=== PATIENT | female | born 1950 | race Caucasian/White ===

== ENCOUNTER → 2017-05-21 | Outpatient (CLI) | payer MEDICARE, OTHER ==
--- NOTE | ~2017-05-21 | MY29 ---
[facility] A Service of [facility] RADIOLOGY TEXT RESULTS PATIENT: QUINTEN GORMAN LOCATION: [facility] : 50 UNIT #: [id number] AGE: [address]: NATASHA LAZCANO SEX: F ORDER DR: [id number] [facility] [address] [place], [place] [address] [id number] O MR#: [id number] Acc #: [id number] NAME: QUINTEN GORMAN : 1950 SEX: F STUDY DATE/TIME: 05/21/2017 10:44 UNIT: [facility] ROOM: STUDY DESCRIPTION: MY LIBBY SCREENING W/ CAD BILAT Attending Physician: Natasha Lazcano M.D. Referring Physician: Natasha Lazcano M.D. Ordering Physician: Physician Non-Staff Primary Care Physician: Natasha Lazcano M.D. MEDICAL IMAGING REPORT This report is preliminary unless electronic signature is present EXAM Digital screening mammogram 05/21/2017 HISTORY 67-year-old woman, no risk elevation. Annual screen. COMPARISON STUDIES Comparison mammograms date to 01/01/2007 with most recent 05/19/2016. FINDINGS Digital imaging of each breast was completed utilizing screening protocol. Review includes FDA-approved CAD device. Breast parenchyma is heterogeneous with small nodular parenchymal pattern noted bilaterally. This projects predominantly anterior third location in each breast. I see no suspicious mass characteristics. There are no interval occurring microcalcifications and no suspicious architectural deformity. IMPRESSION Benign mammogram. Annual screening recommended. BIRADS II Patients over the age of 40 are entered into a reminder system with target due date for the next mammogram. A result letter will also be sent to the patient. BIRADS: 2 - Benign finding Dictated by... Osvaldo Walker M.D. THIS IS AN ELECTRONICALLY VERIFIED REPORT Osvaldo Walker M.D. at 05/22/2017 8:11 AM YOLETTE/penny [facility] A Service of [facility] RADIOLOGY TEXT RESULTS PATIENT: QUINT[facility] GORMAN [id number] 50 UNIT #: [id number] AGE: [address]: NATASHA LAZCANO SEX: F ORDER DR: TD: 05/21/2017 16:55 JOB #: [id number] MEDICAL IMAGING REPORT Page 1 of 1 COPY
== END | disposition home or self-care (01) ==
LOC: CWCC 10:15
DX: Z12.31 Encounter for screening mammogram for malignant neoplasm of breast (principal)
CPT/HCPCS: G0202

== ENCOUNTER 2017-06-20 21:56 | Emergency (ER) | payer MEDICARE, OTHER ==
[~2017-06-20] VITALS: Ht 157.5 cm; Wt 60.8 kg
--- NOTE | ~2017-06-20 | CR72 ---
[facility] A Service of [facility] RADIOLOGY TEXT RESULTS PATIENT: QUINTEN GORMAN LOCATION: [facility] : 50 UNIT #: [id number] AGE: [address]: Carlos Mesa MD SEX: F ORDER DR: [id number] [facility] [address] [place], [place] [address] [id number] E MR#: [id number] Acc #: [id number] NAME: QUINTEN GORMAN. : 1950 SEX: F STUDY DATE/TIME: 06/20/2017 22:53 UNIT: [facility] ROOM: STUDY DESCRIPTION: CR Chest Single View Portable Attending Physician: Carlos Mesa M.D. Ordering Physician: Carlos Mesa M.D. Primary Care Physician: Natasha Carr M.D. MEDICAL IMAGING REPORT This report is preliminary unless electronic signature is present EXAM Chest x-ray, 06/20/2017 HISTORY 67-year-old female in the ED complaining of headache, neck pain and left shoulder pain after a fall today prior to arrival. TECHNIQUE AP portable chest x-ray. Findings the examination shows a displaced midshaft fracture of the left clavicle. No rib fracture is visible. Shallow lung expansion with mild bibasilar pulmonary atelectasis. No visible pneumothorax or pleural effusion. Mild cardiomegaly. IMPRESSION Left clavicle fracture. Dictated by... Cyril Manley M.D. THIS IS AN ELECTRONICALLY VERIFIED REPORT Cyril Manley M.D. at 06/21/2017 6:05 AM ANIRUDH/grace TD: 06/21/2017 05:26 JOB #: [id number] MEDICAL IMAGING REPORT Page 1 of 1 COPY
--- NOTE | ~2017-06-20 | CT52 ---
[facility] A Service of [facility] RADIOLOGY TEXT RESULTS PATIENT: QUINTEN GORMAN LOCATION: [facility] : 50 UNIT #: [id number] AGE: [address]: Carlos Mesa MD SEX: F ORDER DR: [id number] [facility] [place], [place] [address] [id number] E MR#: [id number] Acc #: [id number] NAME: QUINTEN GORMAN. : 1950 SEX: F STUDY DATE/TIME: 06/20/2017 22:42 UNIT: [facility] ROOM: STUDY DESCRIPTION: CT Cervical Spine Wo Cont Attending Physician: Carlos Mesa M.D. Ordering Physician: Carlos Mesa M.D. Primary Care Physician: Natasha Carr M.D. MEDICAL IMAGING REPORT This report is preliminary unless electronic signature is present EXAM CT cervical spine, 06/20/2017 HISTORY 67-year-old female in the ED complaining of headache, neck pain and left shoulder pain after a fall prior to arrival today. TECHNIQUE Thin-section axial CT images were obtained from the skull base through the mid portion of T2. Sagittal and coronal images were reconstructed. This CT exam was performed with one or more of the following radiation dose reduction techniques: automatic exposure control, adjustment of mA and/or kV according to patient size, and iterative reconstruction. FINDINGS No fracture or other acute osseous abnormality is demonstrated. Moderate degenerative disc space changes at C5-6. Mild to moderate bilateral degenerative facet arthropathy throughout the cervical spine, greatest on the left at C3-4 and C4-5. Grade 1 anterolisthesis at C4-5. Cervical vertebral alignment is otherwise within normal limits. IMPRESSION 1. No acute osseous abnormality. 2. Degenerative disc disease at C5-6. 3. Degenerative facet arthropathy, greatest on the left at C3-4 and C4-5. Grade 1 anterolisthesis at C4-5.. Dictated by... [facility] A Service of [facility] RADIOLOGY TEXT RESULTS PATIENT: QUINTEN GORMAN LOCATION: [facility] : 50 UNIT #: [id number] AGE: [address]: Carlos Mesa MD SEX: F ORDER DR: Cyril Manley M.D. THIS IS AN ELECTRONICALLY VERIFIED REPORT Cyril Manley M.D. at 06/21/2017 6:05 AM ANIRUDH/grace TD: 06/21/2017 05:23 JOB #: [id number] MEDICAL IMAGING REPORT Page 1 of 1 COPY
--- NOTE | ~2017-06-20 | CT71 ---
[facility] A Service [facility] RADIOLOGY TEXT RESULTS PATIENT: QUINTEN GORMAN LOCATION: [facility] UN[facility] : 50 UNIT #: [id number] AGE: [address]: Carlos Mesa MD SEX: F ORDER DR: [id number] [id number] [facility]. [place], [place] [address] [id number] E MR#: [id number] Acc #: [id number] NAME: QUINTEN GORMAN. : 1950 SEX: F STUDY DATE/TIME: 06/20/2017 22:34 UNIT: [facility] ROOM: STUDY DESCRIPTION: CT Head Wo Contrast Attending Physician: Carlos Mesa M.D. Ordering Physician: Carlos Mesa M.D. Primary Care Physician: Natasha Carr M.D. MEDICAL IMAGING REPORT This report is preliminary unless electronic signature is present EXAM CT head, noncontrast, 06/20/2017 HISTORY 67-year-old female in the ED complaining of headache, neck pain and left shoulder pain after a fall prior to arrival today. TECHNIQUE CT examination of the head without IV contrast. This CT exam was performed with one or more of the following radiation dose reduction techniques: automatic exposure control, adjustment of mA and/or kV according to patient size, and iterative reconstruction. FINDINGS No acute intracranial abnormality is identified. No visible skull fracture. Mild generalized cerebral cortical atrophy. Mild patchy diffuse low-attenuation white matter changes are nonspecific but likely related to chronic microvascular disease. No evidence of intracranial hemorrhage, mass, mass effect, cerebral edema, hydrocephalus or additional abnormality. IMPRESSION 1. No acute intracranial abnormality. No visible skull fracture. 2. Mild diffuse chronic changes as noted above. Dictated by... [facility] A Service [facility] RADIOLOGY TEXT RESULTS PATIENT: QUINTEN GORMAN LOCATION: [facility] UN[facility] : 50 UNIT #: [id number] AGE: [address]: Carlos Mesa MD SEX: F ORDER DR: Cyril G. Waggener, M.D. THIS IS AN ELECTRONICALLY VERIFIED REPORT Cyril Manley M.D. at 06/21/2017 6:05 AM ANIRUDH/grace TD: 06/21/2017 05:17 JOB #: [id number] MEDICAL IMAGING REPORT Page 1 of 1 COPY
== END 2017-06-21 00:20 | disposition home or self-care (01) ==
LOC: CED 21:56
DX: S42.022A Displaced fracture of shaft of left clavicle, initial encounter for closed fracture (principal); W01.0XXA Fall on same level from slipping, tripping and stumbling without subsequent striking against object, initial encounter
CPT/HCPCS: 70450; 71010; 72125; 96374; 96376; 99284; J3010